=== PATIENT | male | born 1985 | race Caucasian/White ===

== ENCOUNTER 2018-12-17 02:09 | Inpatient (IN) | payer SELFPAY ==
[~2018-12-17] VITALS: Ht 182.9 cm; Wt 79.0 kg
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
[2018-12-17] MEDS ORDERED: IV RINGERS SOLUTION,LACTATED 1,000 ML IV SCH (02:44)
[2018-12-17] MEDS ORDERED: DIPHTH,PERTUSS(ACELL),TET TOX 0.5 ML DISP.SYRIN. VAX IM ONE (02:45)
[2018-12-17] MEDS ORDERED: MVI, ADULT NO.4 WITH VIT K 10 ML, FOLIC ACID SYRINGE for ER 1 MG, THIAMINE INJ 100 MG i... IV ONE ×4 (02:45)
[2018-12-17] MEDS ORDERED: THIAMINE 200 MG/2 ML VIAL. IV ONE (03:13)
[2018-12-17] MEDS ORDERED: FOLIC ACID 5 MG/ML SYRINGE for ER IV ONE (03:13)
[2018-12-17] MEDS ORDERED: MVI, ADULT NO.4 WITH VIT K 10 ML VIAL IV ONE (03:13)
--- NOTE | 2018-12-17 03:31 | RAD ---
CT scan of the head without contrast 12/17/2018 Clinical History: Seizure. Fall. Headache. Dizziness. Code stroke. Technique: Unenhanced, contiguous, 5 mm axial sections were obtained through the head. One or more of the following individualized dose reduction techniques were utilized for this study: 1. Automated exposure control. 2. Adjustment of the mA and/or kV according to patient size. 3. Use of iterative reconstruction technique. Findings: The ventricles and sulci are within normal limits in size and configuration. No acute parenchymal abnormality is seen. No extra-axial fluid collection is noted. No skull fracture is seen. No extra-axial fluid collection is noted. No skull fracture is seen. Impression: No acute intracranial abnormality is seen. This result was called to Dr. Felix. CT scan of the cervical spine without contrast 12/17/2018 Clinical history: Neck pain post fall. Technique: Unenhanced, contiguous, 0.625 mm axial sections were obtained through the cervical spine. Axial, coronal and sagittal reconstructed images were obtained. One or more of the following individualized dose reduction techniques were utilized for this study: 1. Automated exposure control. 2. Adjustment of the mA and/or kV according to patient size. 3. Use of iterative reconstruction technique. Findings: Images from the study are degraded by patient motion. Sagittal and coronal reconstructed images demonstrate slight reversal of the normal cervical lordosis. No fracture or subluxation of the cervical vertebrae is seen. Impression: No fracture or subluxation of the cervical vertebra is identified. Electronically signed by: Jaspal Cameron MD (12/17/2018 3:28 AM) [facility]
--- NOTE | 2018-12-17 03:32 | RAD ---
PA and lateral chest radiographs 12/17/2018 Clinical History: Chest pain post fall. PA and lateral digital radiographs of the chest were obtained.The cardiac and mediastinal silhouettes are within normal limits in size and configuration. No pulmonary infiltrate is seen. No pleural effusion or pneumothorax is noted. The osseous structures are grossly intact. Impression: No radiographic evidence of active cardiopulmonary disease. Electronically signed by: Jaspal Cameron MD (12/17/2018 3:29 AM) [facility]
[2018-12-17 03:36] LABS: BASO # 0.1 x10^3/uL (0.0-0.2); BASO % 1 % (0-3); EOS # 0.1 x10^3/uL (0.0-0.7); EOS % 1 % (0-3); HEMATOCRIT 40.5 % (39.0-53.0); HEMOGLOBIN 14.1 g/dL (13.0-17.5); LYMPH # 2.4 x10^3/uL (1.0-4.8); LYMPH % 23 % (24-48); MEAN CORPUSCULAR HEMOGLOBIN 33 pg (25-35); MEAN CORPUSCULAR HGB CONC 35 g/dL (31-37); MEAN CORPUSCULAR VOLUME 93 fL (79-100); MONO # 0.7 x10^3/uL (0.0-1.1); MONO % 7 % (0-9); NEUT % 68 % (31-73); PLATELET COUNT 321 x10^3/uL (140-400); RED BLOOD COUNT 4.33 x10^6/uL (4.30-5.70); RED CELL DISTRIBUTION WIDTH 12.9 % (11.5-14.5); WHITE BLOOD COUNT 10.3 x10^3/uL (4.0-11.0)
[2018-12-17 03:41] LABS: ALBUMIN 3.6 g/dL (3.4-5.0); ALK PHOS 85 U/L (46-116); ALT (SGPT) 21 U/L (16-63); ANION GAP 9 (6-14); AST (SGOT) 20 U/L (15-37); BLOOD UREA NITROGEN 16 mg/dL (8-26); CALCIUM 8.9 mg/dL (8.5-10.1); CARBON DIOXIDE 31 mmol/L (21-32); CHLORIDE 103 mmol/L (98-107); CREATININE 0.7 mg/dL (0.7-1.3); DIRECT BILIRUBIN 0.2 mg/dL (0.0-0.2); GFR 131.5; GLUCOSE 74 mg/dL (70-99); LIPASE 133 U/L (73-393); MAGNESIUM 1.5 mg/dL (1.8-2.4); POTASSIUM 3.8 mmol/L (3.5-5.1); SODIUM 143 mmol/L (136-145); TOTAL BILIRUBIN 0.5 mg/dL (0.2-1.0); TOTAL PROTEIN 7.3 g/dL (6.4-8.2); VAL ACID 6 mcg/mL (50-100)
[2018-12-17] MEDS ORDERED: ONDANSETRON PF 4 MG/2 ML VIAL. IV PRN (03:45)
[2018-12-17] MEDS ORDERED: DIVALPROEX ER 500 MG TAB.ER.24H PO ONE (04:00)
[2018-12-17] MEDS ORDERED: ANTI-COAG MONITOR BY PHARMACY. MC PRN (04:00)
[2018-12-17] MEDS ORDERED: ENOXAPARIN ** NOTE DOSE ** SYRINGE SQ ONE (04:00)
[2018-12-17] MEDS ORDERED: ASPIRIN 81 MG TAB.CHEW PO ONE (04:00)
[2018-12-17 04:15] VITALS: BP 113/76
[2018-12-17] MEDS ORDERED: MAGNESIUM SULFATE 2GM 50 ML IV ONE ×2 (04:30→08:15)
[2018-12-17] MEDS ORDERED: DEPAKOTE (06:12)
--- NOTE | 2018-12-17 06:24 | EKG ---
[address] [address] Test Date: 2018-12-17 Test Time: 02:40:00 Pat Name: CUATE FUNES Department: Room: 123 A Gender: M Ash Kier Boiler: ELVIE : 1985 Requested By: KASSY SHERMAN Order Number: [id number] Reading MD: Axel Watts MD Measurements Intervals Bradley Rate: 106 P: -48 ND: 178 QRS: 17 QRSD: 148 T: 62 QT: 376 QTc: 501 Interpretive Statements SINUS TACHYCARDIA LBBB Electronically Signed On 12-19-2018 14:28:29 CDT by Axel Watts MD
[2018-12-17] MEDS: IPRATRPIUM/ALBUTEROL 0.5/2.5MG 3 ML NEBU. NEB SCH ×4 (08:00→20:12)
[2018-12-17] MEDS: ASPIRIN 81 MG TAB.CHEW PO SCH (08:36)
[2018-12-17] MEDS: DIVALPROEX ER 250 MG TAB.ER.24H. PO SCH ×2 (08:36→21:36)
[2018-12-17 10:55] VITALS: BP 154/70
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
[2018-12-17 14:57] LABS: BARBITURATES NEG (NEG); BENZODIAZEPINES NEG (NEG); CANNABINOIDS POS (NEG); COCAINE NEG (NEG); METHADONE NEG (NEG); OPIATES NEG (NEG); PHENCYCLIDINE NEG (NEG)
[2018-12-17 14:58] LABS: BILIRUBIN,URINE NEG (NEG); CLARITY,URINE CLEAR; COLOR,URINE AMBER; GLUCOSE,URINE NEG (NEG); NITRITE,URINE NEG (NEG); RBC,URINE RARE /HPF (0-2); UROBILINOGEN,URINE 1 mg/dL (0.2 mg/dL); WBC,URINE OCC /HPF (0-4)
[2018-12-17 14:59] LABS: BACTERIA,URINE 0 /HPF (0-FEW); SQUAMOUS EPITHELIAL CELL,UR OCC /LPF
[2018-12-17 15:03] LABS: AMPHETAMINE/METHAMPHETAMINE NEG (NEG)
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
[2018-12-17 16:25] VITALS: BP 148/75
[2018-12-17 18:51] VITALS: BP 120/73
[2018-12-17 20:11] VITALS: BP 127/63
[2018-12-17] MEDS ORDERED: ENOXAPARIN ** NOTE DOSE ** SYRINGE SQ SCH (21:00)
[2018-12-17 22:31] VITALS: BP 119/74
[2018-12-18 08:19] LABS: BASO # 0.1 x10^3/uL (0.0-0.2); BASO % 1 % (0-3); EOS # 0.2 x10^3/uL (0.0-0.7); EOS % 2 % (0-3); HEMATOCRIT 39.5 % (39.0-53.0); HEMOGLOBIN 13.7 g/dL (13.0-17.5); LYMPH # 1.7 x10^3/uL (1.0-4.8); LYMPH % 21 % (24-48); MEAN CORPUSCULAR HEMOGLOBIN 32 pg (25-35); MEAN CORPUSCULAR HGB CONC 35 g/dL (31-37); MEAN CORPUSCULAR VOLUME 93 fL (79-100); MONO # 0.5 x10^3/uL (0.0-1.1); MONO % 6 % (0-9); NEUT # 5.8 x10^3uL (1.8-7.7); NEUT % 70 % (31-73); PLATELET COUNT 287 x10^3/uL (140-400); RED BLOOD COUNT 4.24 x10^6/uL (4.30-5.70); WHITE BLOOD COUNT 8.2 x10^3/uL (4.0-11.0)
[2018-12-18 08:41] LABS: ALBUMIN 2.9 g/dL (3.4-5.0); ALBUMIN/GLOBULIN RATIO 0.8 (1.0-1.7); CALCIUM 8.9 mg/dL (8.5-10.1); CREATININE 0.6 mg/dL (0.7-1.3); GFR 157.1; POTASSIUM 3.7 mmol/L (3.5-5.1); TOTAL BILIRUBIN 0.5 mg/dL (0.2-1.0); TOTAL PROTEIN 6.5 g/dL (6.4-8.2)
[2018-12-18] MEDS: ASPIRIN 81 MG TAB.CHEW PO SCH (08:48)
[2018-12-18] MEDS: DIVALPROEX ER 250 MG TAB.ER.24H. PO SCH (08:48)
[2018-12-18 08:52] LABS: VAL ACID 71 mcg/mL (50-100)
[2018-12-18] MEDS ORDERED: MAGNESIUM OXIDE 400 MG TABLET PO SCH (09:00)
--- NOTE | 2018-12-18 09:51 | PDOC ---
PROGRESS NOTES Diagnosis Problem Problems Medical Problems: (1) Seizure Status: Acute Assessment 1. Seizures in a patient with known history of seizure disorder, secondary to noncompliance with medications and alcohol use. Continue treatment per IM 2. Abnormal EKG: Showed sinus rhythm with left bundle branch block, probably chronic. Patient's chest pain is very atypical. Myocardial infarction ruled out. Check 2-D echo to assess LV function and rule out wall motion abnormalities - could be done as an outpatient if discharged today. 3. Paroxysmal atrial fibrillation per history but patient presently not on any treatment. Presently in sinus rhythm. Plan for event monitor as an outpatient to guide further therapy. Objective Vital Signs Date Time Temp Pulse Resp B/P (MAP) Pulse Ox O2 Delivery O2 Flow Rate FiO2 12/18/18 08:00 Room Air 12/17/18 22:31 98.5 89 20 119/74 (89) 97 Intake and Output 12/18/18 06:59 Intake Total 2870 ml Output Total 200 ml Balance 2670 ml Intake Oral 1800 ml IV Total 600 ml Blood Product IV Normal Saline Flush 470 ml Output Urine Total 200 ml # Voids 2 Review of Relevant I have reviewed the following items peter (where applicable) has been applied. Labs Laboratory Tests Test 12/17/18 03:05 12/17/18 14:33 12/18/18 08:09 White Blood Count 10.3 x10^3/uL (4.0-11.0) 8.2 x10^3/uL (4.0-11.0) Red Blood Count 4.33 x10^6/uL (4.30-5.70) 4.24 x10^6/uL (4.30-5.70) Hemoglobin 14.1 g/dL (13.0-17.5) 13.7 g/dL (13.0-17.5) Hematocrit 40.5 % (39.0-53.0) 39.5 % (39.0-53.0) Mean Corpuscular Volume 93 fL (79-100) 93 fL (79-100) Mean Corpuscular Hemoglobin 33 pg (25-35) 32 pg (25-35) Mean Corpuscular Hemoglobin Concent 35 g/dL (31-37) 35 g/dL (31-37) Red Cell Distribution Width 12.9 % (11.5-14.5) 13.0 % (11.5-14.5) Platelet Count 321 x10^3/uL (140-400) 287 x10^3/uL (140-400) Neutrophils (%) (Auto) 68 % (31-73) 70 % (31-73) Lymphocytes (%) (Auto) 23 % (24-48) 21 % (24-48) Monocytes (%) (Auto) 7 % (0-9) 6 % (0-9) Eosinophils (%) (Auto) 1 % (0-3) 2 % (0-3) Basophils (%) (Auto) 1 % (0-3) 1 % (0-3) Neutrophils # (Auto) 7.0 x10^3uL (1.8-7.7) 5.8 x10^3uL (1.8-7.7) Lymphocytes # (Auto) 2.4 x10^3/uL (1.0-4.8) 1.7 x10^3/uL (1.0-4.8) Monocytes # (Auto) 0.7 x10^3/uL (0.0-1.1) 0.5 x10^3/uL (0.0-1.1) Eosinophils # (Auto) 0.1 x10^3/uL (0.0-0.7) 0.2 x10^3/uL (0.0-0.7) Basophils # (Auto) 0.1 x10^3/uL (0.0-0.2) 0.1 x10^3/uL (0.0-0.2) Prothrombin Time 9.8 SEC (9.4-11.4) Prothromb Time International Ratio 1.0 (0.9-1.1) Activated Partial Thromboplast Time 25 SEC (23-33) D-Dimer (Isabella) 0.31 mg/L (0.00-0.50) Sodium Level 143 mmol/L (136-145) 144 mmol/L (136-145) Potassium Level 3.8 mmol/L (3.5-5.1) 3.7 mmol/L (3.5-5.1) Chloride Level 103 mmol/L (98-107) 105 mmol/L (98-107) Carbon Dioxide Level 31 mmol/L (21-32) 29 mmol/L (21-32) Anion Gap 9 (6-14) 10 (6-14) Blood Urea Nitrogen 16 mg/dL (8-26) 7 mg/dL (8-26) Creatinine 0.7 mg/dL (0.7-1.3) 0.6 mg/dL (0.7-1.3) Estimated GFR (Cockcroft-Gault) 131.5 157.1 Glucose Level 74 mg/dL (70-99) 94 mg/dL (70-99) Calcium Level 8.9 mg/dL (8.5-10.1) 8.9 mg/dL (8.5-10.1) Magnesium Level 1.5 mg/dL (1.8-2.4) 1.7 mg/dL (1.8-2.4) Total Bilirubin 0.5 mg/dL (0.2-1.0) 0.5 mg/dL (0.2-1.0) Direct Bilirubin 0.2 mg/dL (0.0-0.2) Aspartate Amino Transf (AST/SGOT) 20 U/L (15-37) 10 U/L (15-37) Alanine Aminotransferase (ALT/SGPT) 21 U/L (16-63) 15 U/L (16-63) Alkaline Phosphatase 85 U/L (46-116) 75 U/L (46-116) Creatine Kinase 303 U/L (39-308) Troponin I Quantitative < 0.017 ng/mL (0-0.055) VF-Rei-M-Type Natriuretic Peptide 522 pg/mL (0-124) Total Protein 7.3 g/dL (6.4-8.2) 6.5 g/dL (6.4-8.2) Albumin 3.6 g/dL (3.4-5.0) 2.9 g/dL (3.4-5.0) Lipase 133 U/L (73-393) Thyroid Stimulating Hormone (TSH) 2.044 uIU/mL (0.358-3.740) Valproic Acid (Depakene) Level 6 mcg/mL (50-100) 71 mcg/mL (50-100) Valproic Acid Last Dose Date 07/31/11 12/17/18 Valproic Acid Last Dose Time 1111 2100 Ethyl Alcohol Level 49 mg/dL (0-10) Urine Collection Type Unknown Urine Color Shelly Urine Clarity Clear Urine pH 6.0 Urine Specific [place] 1.025 Urine Protein Neg (NEG-TRACE) Urine Glucose (UA) Neg mg/dL (NEG) Urine Ketones (Stick) 80 mg/dL (NEG) Urine Blood Neg (NEG) Urine Nitrite Neg (NEG) Urine Bilirubin Neg (NEG) Urine Urobilinogen Dipstick 1 mg/dL (0.2 mg/dL) Urine Leukocyte Esterase Neg (NEG) Urine RBC Rare /HPF (0-2) Urine WBC Occ /HPF (0-4) Urine Squamous Epithelial Cells Occ /LPF Urine Bacteria 0 /HPF (0-FEW) Urine Mucus Slight /LPF Urine Opiates Screen Neg (NEG) Urine Methadone Screen Neg (NEG) Urine Barbiturates Neg (NEG) Urine Phencyclidine Screen Neg (NEG) Urine Amphetamine/Methamphetamine Neg (NEG) Urine Benzodiazepines Screen Neg (NEG) Urine Cocaine Screen Neg (NEG) Urine Cannabinoids Screen Pos (NEG) Urine Ethyl Alcohol Pos (NEG) BUN/Creatinine Ratio 12 (6-20) Albumin/Globulin Ratio 0.8 (1.0-1.7) Medications Current Medications Lactated Ringer's 1,000 ml @ 1,000 mls/hr Q1H IV Last administered on at 03:23; Start 12/17/18 at 02:44; Stop 12/17/18 at 03:43; Status DC Diphtheria/ Tetanus/Acell Pertussis (Boostrix) 0.5 ml ONCE ONCE VAX IM Last administered on 12/17/18at 03:26; Start 12/17/18 at 02:45; Stop 12/17/18 at 03:35 ; Status DC Lorazepam (Ativan) 2 mg 1X ONCE IV Last administered on 12/17/18at 03:25; Start 12/17/18 at 02:45; Stop 12/17/18 at 03:35; Status DC Multivitamins/ Minerals 10 ml/ Folic Acid 1 mg/ Thiamine HCl 100 mg/Lactated Ringer's 1,011.2 ml @ 1,011.2 mls/hr 1X ONCE IV Last administered on at 03:24; Start 12/17/18 at 02:45; Stop 12/17/18 at 03:44; Status DC Divalproex Sodium (Depakote Er) 1,000 mg 1X ONCE PO Last administered on at 03:49; Start 12/17/18 at 04:00; Stop 12/17/18 at 04:01; Status DC Thiamine HCl (Thiamine Vial) 200 mg STK-MED ONCE IV ; Start 12/17/18 at 03:13; Stop 12/17/18 at 03:14; Status DC Multivitamins/ Minerals (Infuvite Adult) 10 ml STK-MED ONCE IV ; Start 12/17/18 at 03:13; Stop 12/17/18 at 03:14; Status DC Folic Acid (FOLIC ACID SYRINGE for ER) 5 mg STK-MED ONCE IV ; Start 12/17/18 at 03:13; Stop 12/17/18 at 03:14; Status DC Aspirin (Children'S Aspirin) 324 mg 1X ONCE PO Last administered on 12/17/18at 03:48; Start 12/17/18 at 04:00; Stop 12/17/18 at 04:01; Status DC Enoxaparin Sodium (Lovenox 80mg Syringe) 80 mg 1X ONCE SQ Last administered on 12/17/18at 03:47; Start 12/17/18 at 04:00; Stop 12/17/18 at 04:01; Status DC Ondansetron HCl (Zofran) 4 mg PRN Q4HRS PRN IV NAUSEA/VOMITING; Start 12/17/18 at 03:45; Stop 12/18/18 at 03:44; Status DC Albuterol/ Ipratropium (Duoneb) 3 ml RTQID NEB Last administered on 12/17/18at 20:12; Start 12/17/18 at 08:00; Stop 12/18/18 at 07:59; Status DC Lorazepam (Ativan) 2 mg 1X PRN PRN IV SEIZURE; Start 12/17/18 at 03:45 Divalproex Sodium (Depakote Er) 750 mg BID PO Last administered on 12/18/18at 08 :48; Start 12/17/18 at 09:00 Enoxaparin Sodium (Lovenox 80mg Syringe) 80 mg BID SQ ; Start 12/17/18 at 21:00 ; Stop 12/17/18 at 21:00; Status DC Aspirin (Children'S Aspirin) 81 mg DAILY PO Last administered on 12/18/18at 08: 48; Start 12/17/18 at 09:00 Info (Anti-Coagulation Monitoring By Pharmacy) 1 each PRN DAILY PRN MC SEE COMMENTS; Start 12/17/18 at 04:00; Stop 12/18/18 at 07:47; Status DC Magnesium Sulfate 50 ml @ 25 mls/hr 1X ONCE IV ; Start 12/17/18 at 04:30; Stop 12/17/18 at 06:29; Status DC Magnesium Sulfate 50 ml @ 25 mls/hr 1X ONCE IV Last administered on 12/17/18at 08:37; Start 12/17/18 at 08:15; Stop 12/17/18 at 10:14; Status DC Magnesium Oxide (Magnesium Oxide) 400 mg BID PO Last administered on 12/18/18at 09:06; Start 12/18/18 at 09:00; Stop 12/19/18 at 21:01 Active Scripts Active Reported [Depakote] Vitals/I & O Vital Sign - Last 24 Hours 12/17/18 12/17/18 12/17/18 12/17/18 10:55 12:47 15:35 16:25 Temp 98.6 97.9 Pulse 94 101 Resp 18 18 B/P (MAP) 154/70 (98) 148/75 (99) Pulse Ox 96 96 O2 Delivery Room Air Room Air Room Air Room Air 12/17/18 12/17/18 12/17/18 12/17/18 18:51 20:10 20:11 20:40 Temp 98.2 98.7 Pulse 93 104 Resp 18 18 B/P (MAP) 120/73 (89) 127/63 (84) Pulse Ox 96 98 O2 Delivery Room Air Room Air Room Air Room Air 12/17/18 12/18/18 22:31 08:00 Temp 98.5 Pulse 89 Resp 20 B/P (MAP) 119/74 (89) Pulse Ox 97 O2 Delivery Room Air Room Air Intake and Output 12/17/18 12/17/18 12/18/18 14:59 22:59 06:59 Intake Total 1200 ml 1670 ml Output Total 200 ml Balance 1200 ml 1470 ml KHOI VITALE MD Dec 18, 2018 09:51
[2018-12-18 10:56] VITALS: BP 111/62
[2018-12-18] MEDS ORDERED: DIVA500T4 PO (11:55)
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
== END 2018-12-18 12:20 | disposition home or self-care (01) | DRG 101 ==
LOC: ER 02:09 → 1 SOUTH 02:30 → UNDOADMIN 02:30
PROVIDERS: ADMIT Internal Medicine; ATTEND Internal Medicine
DX: G40.909 Epilepsy, unspecified, not intractable, without status epilepticus (principal); S06.9X9A Unspecified intracranial injury with loss of consciousness of unspecified duration, initial encounter; F12.90 Cannabis use, unspecified, uncomplicated; R07.89 Other chest pain; F17.210 Nicotine dependence, cigarettes, uncomplicated; I48.0 Paroxysmal atrial fibrillation; I44.7 Left bundle-branch block, unspecified; S40.819A Abrasion of unspecified upper arm, initial encounter; Z79.899 Other long term (current) drug therapy; Z87.820 Personal history of traumatic brain injury; Z91.14 Patient's other noncompliance with medication regimen; Z91.19 Patient's noncompliance with other medical treatment and regimen; X58.XXXA Exposure to other specified factors, initial encounter; Y93.89 Activity, other specified; Y92.89 Other specified places as the place of occurrence of the external cause; Y99.8 Other external cause status; Z88.8 Allergy status to other drugs, medicaments and biological substances
CPT/HCPCS: 36415; 70450; 71046; 72125; 80048; 80053; 80076; 80164; 80307; 81001; 82550; 83690; 83735; 83880; 84443; 84484; 85025; 85379; 85610; 85730; 90471; 90715; 93005; 94640; 96365; 96372; 96375; G0480; J1650; J2060; J3475; J7120; J7620; 99285-25

== ENCOUNTER 2019-05-09 18:09 | Inpatient (IN) | payer SELFPAY ==
[~2019-05-09] VITALS: Ht 182.9 cm; Wt 77.6 kg
[~2019-05-09 18:09] MED LIST: DEPAKOTE; DIVA500T4 PO
[2019-05-09 18:50] LABS: BASO # 0.1 x10^3/uL (0.0-0.2); BASO % 1 % (0-3); EOS % 0 % (0-3); HEMATOCRIT 41.8 % (39.0-53.0); HEMOGLOBIN 14.5 g/dL (13.0-17.5); LYMPH # 1.5 x10^3/uL (1.0-4.8); LYMPH % 29 % (24-48); MEAN CORPUSCULAR HEMOGLOBIN 34 pg (25-35); MEAN CORPUSCULAR HGB CONC 35 g/dL (31-37); MEAN CORPUSCULAR VOLUME 99 fL (79-100); MONO # 0.6 x10^3/uL (0.0-1.1); MONO % 12 % (0-9); NEUT % 58 % (31-73); PLATELET COUNT 312 x10^3/uL (140-400); RED BLOOD COUNT 4.22 x10^6/uL (4.30-5.70); RED CELL DISTRIBUTION WIDTH 15.1 % (11.5-14.5); WHITE BLOOD COUNT 5.1 x10^3/uL (4.0-11.0)
[2019-05-09 19:04] LABS: ALBUMIN 3.5 g/dL (3.4-5.0); CALCIUM 8.5 mg/dL (8.5-10.1); CREATININE 0.9 mg/dL (0.7-1.3); GFR 97.8; POTASSIUM 3.5 mmol/L (3.5-5.1); TOTAL BILIRUBIN 0.5 mg/dL (0.2-1.0); TOTAL PROTEIN 7.1 g/dL (6.4-8.2)
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
--- NOTE | 2019-05-09 19:13 | EKG ---
[address] [address] Test Date: 2019-05-09 Test Time: 19:11:52 Pat Name: CUATE FUNES Department: Room: Gender: M 3D Modeler: : [id number] Requested By: CUATE FINK Order Number: [id number] Reading MD: Axel Watts MD Measurements Intervals [place] Rate: 81 P: 29 CA: 170 QRS: -16 QRSD: 154 T: 37 QT: 426 QTc: 495 Interpretive Statements SINUS RHYTHM LBBB Electronically Signed On 05-12-2019 11:19:40 CDT by Axel Watts MD
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
[2019-05-09] MEDS ORDERED: DIVALPROEX SODIUM 125 MG TABLET.DR. PO ONE (20:00)
[2019-05-09] MEDS ORDERED: IV NORMAL SALINE 1,000ML 1,000 ML IV ONE ×2 (20:00→22:30)
[2019-05-09 21:29] LABS: BILIRUBIN,URINE NEG (NEG); CLARITY,URINE CLEAR; COLOR,URINE YELLOW; GLUCOSE,URINE NEG (NEG)
[2019-05-09 21:30] LABS: NITRITE,URINE NEG (NEG); UROBILINOGEN,URINE 0.2 mg/dL (0.2 mg/dL)
[2019-05-09 21:35] LABS: BARBITURATES NEG (NEG); BENZODIAZEPINES NEG (NEG); CANNABINOIDS NEG (NEG); COCAINE NEG (NEG); METHADONE NEG (NEG); OPIATES NEG (NEG); PHENCYCLIDINE NEG (NEG)
[2019-05-09 21:41] LABS: RBC,URINE 0 /HPF (0-2)
[2019-05-09 21:42] LABS: BACTERIA,URINE FEW /HPF (0-FEW); WBC,URINE OCC /HPF (0-4)
[2019-05-09 21:54] LABS: AMPHETAMINE/METHAMPHETAMINE NEG (NEG)
[2019-05-09] MEDS ORDERED: ONDANSETRON PF 4 MG/2 ML VIAL. IV PRN (22:00)
[2019-05-09] MEDS ORDERED: DIVA500T4 PO (23:31)
[2019-05-09 23:36] LABS: VAL ACID 55 mcg/mL (50-100)
[2019-05-10 04:17] VITALS: BP 101/64
[2019-05-10 06:21] VITALS: BP 147/80
[2019-05-10] MEDS ORDERED: MVI, ADULT NO.4 WITH VIT K 10 ML, THIAMINE INJ 100 MG, FOLIC ACID INJ 1 MG in IV NORMAL... IV SCH ×4 (09:00)
[2019-05-10] MEDS ORDERED: NICOTINE 21MG PATCH. TD SCH (09:00)
[2019-05-10] MEDS ORDERED: DIVALPROEX ER 500 MG TAB.ER.24H PO SCH (09:00)
[2019-05-10 11:16] VITALS: BP 122/73
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
== END 2019-05-10 14:38 | disposition home or self-care (01) | DRG 101 ==
LOC: ER 18:09 → 1 SOUTH 21:22 → ER 22:27
PROVIDERS: ADMIT Internal Medicine; ATTEND Internal Medicine
DX: G40.909 Epilepsy, unspecified, not intractable, without status epilepticus (principal); E87.2 Acidosis; I48.91 Unspecified atrial fibrillation; F10.10 Alcohol abuse, uncomplicated; F12.90 Cannabis use, unspecified, uncomplicated; F17.210 Nicotine dependence, cigarettes, uncomplicated; S01.81XA Laceration without foreign body of other part of head, initial encounter; Z88.1 Allergy status to other antibiotic agents; Z88.0 Allergy status to penicillin; Z87.820 Personal history of traumatic brain injury; Z79.899 Other long term (current) drug therapy; W21.11XA Struck by baseball bat, initial encounter; Y93.89 Activity, other specified; Y92.89 Other specified places as the place of occurrence of the external cause; Y99.8 Other external cause status
CPT/HCPCS: 36415; 70450; 70486; 72125; 80053; 80164; 80307; 81001; 83605; 85025; 93005; 96360; 96361; G0480; J2060; 99285-25; J7030